=== PATIENT | male | born 1990 | race Asian ===

== ENCOUNTER 2016-09-27 10:11 | Emergency (ER) | payer OTHER ==
[~2016-09-27] VITALS: Ht 180.3 cm; Wt 66.0 kg
[~2016-09-27 10:11] MED LIST: LEVE750T8 PO
[2016-09-27 10:18] VITALS: BP 135/78; PULSE 92; RESP 17; TEMP 97.8; O2SAT 99
--- NOTE | 2016-09-27 10:27 | PD ---
HPI Chief Complaint: Swift act Time Seen by Provider: 10:19 Travel History International Travel<30 days: No Contact w/Intl Traveler<30days: No History of Present Illness HPI Patient is a 26 year old male who is brought to the emergency room under Swift act as he reports depression with suicidal ideations. Patient reports that he has been depressed for the past 5 months, reports that he which is return back to [place] where he is from as he does not like living in [place]. Reports that he sent an old picture of him holding a gun to his head to his ex- girlfriend today, his ex-girlfriend called the concrete gun operator and reported this incident. Patient reports that he is suicidal and depressed at this time. PFSH Past Medical History Anxiety: Yes Depression: Yes Cancer: No Cardiovascular Problems: No Diminished Hearing: No Endocrine: No Immune Disorder: No Musculoskeletal: No Neurologic: Yes Psychiatric: Yes Reproductive: No Respiratory: No Integumentary: Yes (LAC ABT 10 DAYS AGO) Seizures: Yes Past Surgical History Surgical History: No Previous Surgery Other Surgery: No Social History Alcohol Use: No Tobacco Use: No Substance Use: Yes (MARIJUANA) Allergies-Medications (Allergen,Severity, Reaction): Coded Allergies: ibuprofen (Unverified Allergy, Intermediate, RASH, 09/27/16) Reported Meds & Prescriptions Reported Meds & Active Scripts Active No Active Prescriptions or Reported Medications Review of Systems General / Constitutional: No: Fever Eyes: No: Visual changes HENT: No: Headaches Cardiovascular: No: Chest Pain or Discomfort Respiratory: No: Shortness of Breath Gastrointestinal: No: Abdominal Pain Genitourinary: No: Dysuria Musculoskeletal: No: Pain Skin: No Rash Neurologic: No: Weakness Psychiatric: Positive: Depression, Suicidal Ideations, Substance Abuse, No: Homicidal Ideation Endocrine: No: Polydipsia Hematologic/Lymphatic: No: Easy Bruising Physical Exam Narrative GENERAL: nad, nontoxic SKIN: Focused skin assessment warm/dry. HEAD: Atraumatic. Normocephalic. EYES: Pupils equal and round. No scleral icterus. No injection or drainage. ENT: No nasal bleeding or discharge. Mucous membranes pink and moist. NECK: Trachea midline. No JVD. CARDIOVASCULAR: Regular rate and rhythm. No murmur appreciated. RESPIRATORY: No accessory muscle use. Clear to auscultation. Breath sounds equal bilaterally. GASTROINTESTINAL: Abdomen soft, non-tender, nondistended. Hepatic and splenic margins not palpable. MUSCULOSKELETAL: No obvious deformities. No clubbing. No cyanosis. No edema. NEUROLOGICAL: Awake and alert. No obvious cranial nerve deficits. Motor grossly within normal limits. Normal speech. PSYCHIATRIC: Depression, suicidal ideation Data Data Last Documented VS Vital Signs Date Time Temp Pulse Resp B/P Pulse Ox O2 Delivery O2 Flow Rate FiO2 09/28/16 06:00 66 16 136/81 98 Room Air 09/27/16 13:54 98.0 Orders Complete Blood Count With Diff (09/27/16 10:19) Comprehensive Metabolic Panel (09/27/16 10:19) Psych Screen (09/27/16 10:19) Drug Screen, Random Urine (09/27/16 10:19) Alcohol (Ethanol) (09/27/16 10:19) Salicylates (Aspirin) (09/27/16 10:19) Tylenol (Acetaminophen) (09/27/16 10:19) Diet Regular Basic (09/27/16 Dinner) Diet Regular Basic (09/28/16 Breakfast) Labs Laboratory Tests Test 09/27/16 09/27/16 10:21 11:30 Sodium Level 139 MEQ/L Potassium Level 4.1 MEQ/L Chloride Level 107 MEQ/L Carbon Dioxide Level 23.8 MEQ/L Anion Gap 8 MEQ/L Blood Urea Nitrogen 11 MG/DL Creatinine 0.79 MG/DL Estimat Glomerular Filtration 119 ML/MIN Rate Random Glucose 107 MG/DL Calcium Level 9.1 MG/DL Total Bilirubin 0.5 MG/DL Aspartate Amino Transf 12 U/L (AST/SGOT) Alanine Aminotransferase 19 U/L (ALT/SGPT) Alkaline Phosphatase 91 U/L Total Protein 7.9 GM/DL Albumin 4.4 GM/DL Salicylates Level 2.3 MG/DL Acetaminophen Level LESS THAN 2.0 MCG/ML Ethyl Alcohol Level LESS THAN 3 MG/DL White Blood Count 5.0 TH/MM3 Red Blood Count 5.17 MIL/MM3 Hemoglobin 15.1 GM/DL Hematocrit 45.6 % Mean Corpuscular Volume 88.1 FL Mean Corpuscular Hemoglobin 29.3 PG Mean Corpuscular Hemoglobin 33.2 % Concent Red Cell Distribution Width 13.7 % Platelet Count 211 TH/MM3 Mean Platelet Volume 7.6 FL Neutrophils (%) (Auto) 69.5 % Lymphocytes (%) (Auto) 19.5 % Monocytes (%) (Auto) 7.6 % Eosinophils (%) (Auto) 2.9 % Basophils (%) (Auto) 0.5 % Neutrophils # (Auto) 3.5 TH/MM3 Lymphocytes # (Auto) 1.0 TH/MM3 Monocytes # (Auto) 0.4 TH/MM3 Eosinophils # (Auto) 0.1 TH/MM3 Basophils # (Auto) 0.0 TH/MM3 CBC Comment DIFF FINAL Differential Comment MDM Medical Decision Making Medical Screen Exam Complete: Yes Emergency Medical Condition: Yes Differential Diagnosis Differential includes depression, suicidal ideations Narrative Course Patient is a 26-year-old male who presents to emergency room by police officers after he was sent for suicidal messaged his ex-girlfriend today, patient reports that he has been depressed for the past 5 months and has thoughts of committing suicide. He did get a picture of him holding onto his head to his ex -girlfriend, she reports that he does not own a gun and that this is an old picture. Patient presents the emergency room under a Swift act. Psychiatric screening labs ordered. Scripts No Active Prescriptions or Reported Meds Sheri Liz DO Sep 27, 2016 10:27
[2016-09-27 11:02] LABS: ALT (GPT) 19 U/L (12-78); ANION GAP 8 MEQ/L (5-15); AST (GOT) 12 U/L (15-37); BICARBONATE 23.8 MEQ/L (21.0-32.0); BLOOD UREA NITROGEN 11 MG/DL (7-18); CHLORIDE 107 MEQ/L (98-107); GLOMERULAR FILTRATION RATE 119 ML/MIN (>89); POTASSIUM 4.1 MEQ/L (3.5-5.1); SODIUM (NA) 139 MEQ/L (136-145)
[2016-09-27 11:04] LABS: ALCOHOL LESS THAN 3 MG/DL (0-5); ALKALINE PHOSPHATASE 91 U/L (45-117); TOTAL BILIRUBIN ADULT 0.5 MG/DL (0.2-1.0)
[2016-09-27 11:06] LABS: ACETAMINOPHEN LESS THAN 2.0 MCG/ML (10.0-30.0)
[2016-09-27 11:59] LABS: AUTOMATED NEUTROPHIL # 3.5 TH/MM3 (1.8-7.7); BASOPHIL % 0.5 % (0.0-2.0); EOSINOPHIL # 0.1 TH/MM3 (0-0.4); EOSINOPHIL % 2.9 % (0.0-4.0); HEMATOCRIT 45.6 % (39.0-51.0); HEMO FLAGS DIFF FINAL; LYMPH % 19.5 % (9.0-44.0); MEAN CELL VOLUME 88.1 FL (80.0-100.0); MEAN CORPUSCULAR HEMOGLOBIN 29.3 PG (27.0-34.0); MEAN CORPUSCULAR HGB CONC 33.2 % (32.0-36.0); MONO % 7.6 % (0.0-8.0); NEUT % 69.5 % (16.0-70.0); PLATELET COUNT 211 TH/MM3 (150-450); RED BLOOD COUNT 5.17 MIL/MM3 (4.50-5.90); RED CELL DISTRIBUTION WIDTH 13.7 % (11.6-17.2)
[2016-09-27 12:14] VITALS: BP 120/81; PULSE 89; RESP 16; TEMP 97.9; O2SAT 99
[2016-09-27 13:54] VITALS: BP 118/77; TEMP 98
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
[2016-09-27 15:50] VITALS: BP 112/60; PULSE 61; RESP 16; O2SAT 95
[2016-09-27 22:05] VITALS: BP 131/63; PULSE 63; RESP 17; O2SAT 99
[2016-09-28 02:00] VITALS: BP 113/62; PULSE 80; RESP 18; O2SAT 96
[2016-09-28 06:00] VITALS: BP 136/81; PULSE 66; RESP 16; O2SAT 98
[2016-09-28 11:34] VITALS: BP 119/79; PULSE 71; RESP 18; O2SAT 100
== END 2016-09-28 13:50 | disposition home or self-care (01) ==
LOC: NEPD 10:11 → NEPJ 09-28 13:50
DX: F43.20 Adjustment disorder, unspecified (principal)
CPT/HCPCS: 80053; 80307; 85025; 99284